=== PATIENT | female | born 1985 | race Caucasian/White ===

== ENCOUNTER 2023-04-05 09:47 | Outpatient (AMB) | payer OTHER, SELFPAY ==
--- NOTE | 2023-04-05 10:00 | A.OFFPC_ITS ---
Vital Signs 04/05/23 10:12 Height 5 ft 2 in Weight 107 lb BMI 19.6 BP 122/82 Blood Pressure Location Lt brachial Position Sitting Pulse 93 Pulse Source Pulse Oximeter Pulse Oximetry (%) 100 Oxygen Delivery Method Room Air Intake Visit Reasons: [employer]-Requesting Physical Exam Intake Note: Pt is here today as a New Patient to [facility] care/ PE: Last papsmear 02/08/22 [facility] Is last menstrual period known: Yes Last menstrual period: 03/17/23 Allergies No Known Allergies [No Known Allergies*] Allergy (Unverified 04/05/23 10:27) Medication List - Last Reconciled 04/05/23 by Chela Dodge MD multivitamin 1 tab PO DAILY Tobacco use date assessed: 04/05/23 Dental Screening Dental Screen Date: 04/05/23 Did you have a dental visit in the last 12 months?: Yes Did you have a dental problem in the last 6 months where you did not have access to dental care?: No Was dental information given to patient?: Patient has dentist HPI [employer]-Requesting Physical Exam HPI Details 38-year-old lady, new to practice, here to establish care with a new PCP and for her physical exam. She had her last cervical cancer screening done at [facility] 02/08/2022 which came back negative for any intraepithelial lesion or malignancy , negative HPV. She has been seeing Dr. Taty Alfaro, who did her bilateral salpingectomy and lysis of adhesions 08/02/2021. Patient states that she has been having episodes of low mood and acute anxiety attacks, has been having difficulty sleeping at night. States that she has had a rough childhood , living with father who has substance use disorder and from an overdose, and mother with depression. She also has had several user relationships in the past but now is in a stable relationship and is planning her wedding in the near future. [facility] Medical History (Updated 04/05/23 @ 11:02 by Chela Dodge MD) Mixed anxiety and depressive disorder History of pre-eclampsia History of Papanicolaou smear of cervix Surgical History (Updated 04/05/23 @ 10:38 by Chela Dodge MD) History of History of bilateral salpingectomy Family History (Updated 04/05/23 @ 10:43 by Chela Dodge MD) Mother Depression Father Substance use disorder Sister History of CVA (cerebrovascular accident) History of DVT (deep vein thrombosis) Social History Housing: Condominium Patient Tobacco Use Status: Former Tobacco user e-Cigarette/Vaping Use: Former Use service: No Current occupational status: employed Cognitive needs: No Hearing needs: No Vision needs: Yes Female Reproductive History Menstrual Age of Menarche: 13 Date of last menstrual period: 03/17/23 Date of last pap smear: 02/08/22 Other: Sees Dr. Taty Alfaro at [facility] Questionnaire PHQ-9 Over the last 2 weeks, how often have you been bothered by any of the following problems? 1. Little interest or pleasure in doing things: more than half the days 2. Feeling down, depressed, or hopeless: more than half the days 3. Trouble falling or staying asleep, or sleeping too much: nearly every day 4. Feeling tired or having little energy: nearly every day 5. Poor appetite or overeating: more than half the days 6. Feeling bad about yourself - or that you are a failure or have let yourself or your family down: more than half the days 7. Trouble concentrating on things, such as reading the newspaper or watching television: more than half the days 8. Moving or speaking so slowly that other people could have noticed. Or the opposite - being so fidgety or restless that you have been moving around a lot more than usual: not at all 9. Thoughts that you would be better off or of hurting yourself in some way: not at all Total score: 16 Depression Screening Interpretation: Positive Depression Screening Follow-up: New Medication prescribed and Community Mental Health Worker F/U Depression Screening Done: Yes 77661 - PHQ-9 Billing: Yes Source: Developed by Drs. Jcarlos Martell, Emeli Velasquez, Shiv Clancy and colleagues, with an educational sabrina from [employer]. Thrive Questionnaire Date Thrive assessed: 04/05/23 I am a: Patient What is your living situation today?: I have a steady place to live Within the past 12 months, did the food you bought not last and you didn't have the money to get more?: Never true Within the past 12 months, did you worry whether your food would run out before you got money to buy more?: Never true Do you have trouble paying for medicines?: No Do you have trouble getting transportation to medical appointments?: No Do you have trouble paying your heating and electricity bill?: No Do you have trouble taking care of your child, family member or friend?: No Do you have trouble with day-to-day activities such as bathing, preparing meals, shopping, managing finances, etc.?: No Are you currently unemployed and looking for a job?: No Are you interested in more education?: No THRIVE Score: 0 AUDIT C Alcohol Use Questionnaire (AUDIT-C) 1. How often do you have a drink containing alcohol?: Never Total Score: 0 CHANDRAKANT-7 AMB Questionnaire CHANDRAKANT-7 Date CHANDRAKANT - 7 assessed: 04/05/23 Feeling nervous, anxious, or on edge: 3 = Nearly every day Not being able to stop or control worryin = Nearly every day Worrying too much about different things: 3 = Nearly every day Trouble relaxin = Several days Being so restless that it is hard to sit still: 0 = Not at all Becoming easily annoyed or irritable: 0 = Not at all Feeling afraid as if something awful might happen: 3 = Nearly every day Total CHANDRAKANT-7 score (0-4 normal; 5-9 mild; 10-14 moderate; 15-21 severe): 13 Source: Developed by Drs. Jcarlos Martell, Emeli Velasquez, Shiv Clancy and colleagues, with an educational sabrina from [employer]. CHANDRAKANT-7 Assessment Billing CHANDRAKANT-7 Assessment Tool: CHANDRAKANT-7 Assessment 84139 Review of Systems Const Reports difficulty sleeping, Reports fatigue, Reports headache(s), Reports malaise, Reports poor appetite and Reports weight loss Eyes Reports no additional complaints ENT Reports headache(s) Card Denies chest pain, Reports rapid heart rate, Denies irregular heart rhythm, Denies lightheadedness and Denies dyspnea Resp Denies cough and Denies dyspnea GI Denies abdominal pain, Denies melena, Denies bloating, Denies hematochezia, Denies change in bowel habits, Denies dyspepsia and Denies heartburn Reports no additional complaints and Denies change in libido Musc Reports no additional complaints Skin/Breast Denies breast pain, Denies breast mass and Denies rash Neuro Reports headache(s) Psych Denies change in libido Endo Denies change in libido and Reports fatigue Demian/Lymph Reports no additional complaints Aller/Immun Reports no additional complaints Physical exam (Primary Care) Vital Signs: Last Vital Signs Pulse 93 04/05/23 10:12 BP 122/82 04/05/23 10:12 Pulse Ox 100 04/05/23 10:12 Oxygen Delivery Method Room Air 04/05/23 10:12 BMI result Body Mass Index 19.6 Tobacco/Smoking Status: Tobacco use Status Tobacco use date assessed 04/05/23 04/05/23 10:15 Patient Tobacco Use Status Former Tobacco user 04/05/23 10:15 e-Cigarette/Vaping Use Former Use 04/05/23 10:15 PHQ-9: PHQ-9 Score PHQ-9: Total score 16 04/05/23 14:14 Depression Screening Interpretation: Positive Depression Screening Follow-up: New Medication prescribed and Community Mental Health Worker F/U Thrive Assessment: Date of Thrive Assessment Date Thrive assessed 04/05/23 04/05/23 10:23 Const General: no acute distress and alert Nutritional Appearance: average body habitus Orientation/consciousness: patient oriented x3 HENMT Head: Yes normocephalic and Yes atraumatic Ears: external ears normal, TM's normal bilaterally and EAC's normal General nose exam: Normal external nose present and No nasal discharge present Face and sinus: Yes face symmetric Mouth: Normal oral and palatal mucosa present, lip normal, tongue normal, oropharynx normal and moist mucous membranes Eyes General: appearance normal, both eyes and all related structures Eyelids: Yes eyelids normal Conjunctivae: conjunctivae normal Sclerae: sclerae normal Pupils: Equal, round and reactive pupils present EOM: EOMs intact bilaterally Neck Neck: Yes full ROM, Yes no lymphadenopathy and Yes supple Thyroid: Thyroid normal (Nonpalpable) Chest Chest palpation & inspection: normal inspection of the chest Breast/axilla inspection: normal inspection of the breasts Breast/axilla palpation: normal palpation of the breasts Resp Effort & Inspection: normal respiratory effort and able to speak in complete sentences Auscultation: clear to auscultation bilaterally Cardio Rate: regular rate Rhythm: regular rhythm Heart sounds: S1 normal heart sound present and S2 normal heart sound present GI Other: Healed surgical scar on lower abdomen Palpation (GI): Soft to palpation, nontender, no guarding and no masses Auscultation: normal bowel sounds General: Yes no CVA tenderness Back/Spine/Pelvis Back: no CVA tenderness and No back tenderness Skin General skin exam: no rashes or lesions noted Neuro General: patient oriented x3, gait normal, moves all extremities, Normal light touch and pain sensation, no focal motor deficits and CN's II-XI intact bilaterally Cranial nerves: Yes Equal, round and reactive pupils present Cognition (Neuro): normal cognition Gait exam (Neuro): Normal gait present Motor exam (neuro): 5/5 motor strength present throughout Extrem General: Yes normal to inspection, Yes full ROM, Yes no joint enlargement, Yes no pedal edema and Yes normal gait Psych Appearance: grossly normal and well kempt Mental Status: mental status grossly normal Speech and movement: Normal speech and movement present Affect: normal affect Attitude: cooperative Thought process: Normal thought process present Thought content: Normal thought content present Assessment and Plan Assessment & Plan (1) Mixed anxiety and depressive disorder: Code(s): F41.8 - Other specified anxiety disorders Plan: Will start on buspirone 5 mg per tablet to take 1 tablet twice a day, and may take an extra dose during the middle of the day as needed for acute anxiety attacks. Referred to [facility] for assistance in getting in for counseling. (2) Annual visit for general adult medical examination with abnormal findings: Code(s): Z00.01 - Encounter for general adult medical examination with abnormal findings Plan: Will check appropriate labs. Recommended dental visit every 6 months and regular eye exams, at least every 2 years. Take adequate calcium in diet and vitamin-D 3 at 2000 IU per cap once a day, in addition to weight-bearing exercises to help maintain good muscle tone and weight control. Instructed to do self-breast exam, and recommended to get yearly mammogram, starting at age 40. Patient states that she must have had her Tdap when she was with her 1st child, but does not want to get the COVID booster nor does she want to get a flu shot (3) Palpitation: Code(s): R00.2 - Palpitations Plan: Ordered a CBC and TSH with reflex T4 (4) Poor appetite: Code(s): R63.0 - Anorexia Plan: Likely due to her anxiety depression, Orders: Orders Lipid Panel Today F41.8 - Other specified anxiety disorders, R00.2 - Palpitations, R63.0 - Anorexia, Z00.01 - Encounter for general adult medical examination with abnormal findings TSH reflex Free T4 Today F41.8 - Other specified anxiety disorders, R00.2 - Palpitations, R63.0 - Anorexia, Z00.01 - Encounter for general adult medical examination with abnormal findings Vitamin D 25-OH Total Today F41.8 - Other specified anxiety disorders, R00.2 - Palpitations, R63.0 - Anorexia, Z00.01 - Encounter for general adult medical examination with abnormal findings Vitamin B12 and Folate Today F41.8 - Other specified anxiety disorders, R00.2 - Palpitations, R63.0 - Anorexia, Z00.01 - Encounter for general adult medical examination with abnormal findings Complete Blood Count Auto Diff Today F41.8 - Other specified anxiety disorders, R00.2 - Palpitations, R63.0 - Anorexia, Z00.01 - Encounter for general adult medical examination with abnormal findings Comprehensive [place]. Panel Fast Today F41.8 - Other specified anxiety disorders, R00.2 - Palpitations, R63.0 - Anorexia, Z00.01 - Encounter for general adult medical examination with abnormal findings Medications: New buspirone 5 mg PO TID 90 tabs 0RF F41.8 - Other specified anxiety disorders Coding Level of Care Code New Pt Prev Care [id number]([id number] Diagnoses Mixed anxiety and depressive disorder F41.8 Annual visit for general adult medical examination with abnormal findings Z00.01 Palpitation R00.2 Poor appetite R63.0 Additional Codes CHANDRAKANT-7 Assessment Billing - CHANDRAKANT-7 Assessment Tool: CHANDRAKANT-7 Assessment 42118 ([id number])
[2023-04-05 10:12] VITALS: BP 122/82; PULSE 93; O2SAT 100; BMI 19.6
== END 2023-04-05 11:00 | disposition home or self-care (01) ==
PROVIDERS: Visit Provider Internal Medicine
DX: Z00.01 Encounter for general adult medical examination with abnormal findings (principal); F41.8 Other specified anxiety disorders; R00.2 Palpitations; R63.0 Anorexia
CPT/HCPCS: 96127; 99213; 99385

== ENCOUNTER 2023-04-09 09:49 | Outpatient (REF) | payer OTHER, SELFPAY ==
[2023-04-09 13:21] LABS: MANUAL DIFF FLAG NO
[2023-04-09 13:35] LABS: Basophils Percent Auto 0.6 % (0-2); Eosinophils Percent Auto 0.6 % (0-4); Hematocrit 35.3 % (37.0-47.0); Hemoglobin 11.6 g/dl (12.0-16.0); Imm Gran Abs Auto 0.02 X10*3/uL (0.00-0.03); Imm Gran Pct Auto 0.3 % (0.0-0.4); Lymphocytes Absolute Auto 1.7 X10*3/uL (1.2-4.9); Lymphocytes Percent Auto 24.7 % (20-40); Mean Corpuscular HGB Conc 32.9 g/dl (31.0-35.0); Mean Corpuscular Hemoglobin 29.1 pg (27.0-33.0); Mean Corpuscular Volume 88.7 fL (80.0-98.0); Mean Platelet Volume 12.9 fL (9.4-12.3); Monocytes Absolute Auto 0.3 X10*3/uL (0.1-1.2); Monocytes Percent Auto 4.6 % (2-11); Neutrophils Absolute Auto 4.8 x10*3/uL (2.0-8.3); Neutrophils Percent Auto 69.2 % (45-73); Platelet Count 180 X10*3/uL (160-400); Red Blood Count 3.98 X10*6/uL (4.20-5.50); Red Cell Distribution Width 12.6 % (11.0-16.0); White Blood Count 6.9 X10*3/uL (4.8-10.8)
[2023-04-09 14:08] LABS: Alanine Aminotransferase 11 U/L (0-31); Albumin Level 4.4 g/dL (3.5-5.0); Alkaline Phosphatase 43 U/L (39-117); Anion Gap 12 (12-20); Aspartate Amino Transferase 17 U/L (5-31); Bilirubin Total 0.4 mg/dL (0.0-1.0); Blood Urea Nitrogen 9 mg/dL (9-16); Carbon Dioxide 26 mmol/L (22-29); Chloride 106 mmol/L (96-108); Cholesterol 160 mg/dL (<200); Estimated Glomerular Filt Rate > 60; Glucose Fasting 91 mg/dL (60-99); HDL Cholesterol 64 mg/dL (>40); LDL Cholesterol Calculated 88 mg/dL (<100); Potassium 3.9 mmol/L (3.3-5.1); Sodium 140 mmol/L (135-145); Total Protein 7.7 g/dL (6.5-8.0); Triglycerides 41 mg/dL (<150)
[2023-04-09 14:12] LABS: TSH reflex Free T4 0.64 uIU/mL (0.32-4.0); Vitamin D 25-OH Total 61.3 ng/mL (>30)
[2023-04-09 14:17] LABS: Folate 13.5 ng/mL (> or = 4.0); Vitamin B12 806 pg/mL (200-900)
== END 2023-04-09 09:50 | disposition home or self-care (01) ==
LOC: HO.HMGCLDS 09:49
PROVIDERS: PCP Internal Medicine; Visit Provider Internal Medicine
DX: Z00.01 Encounter for general adult medical examination with abnormal findings (principal); R00.2 Palpitations; R63.0 Anorexia; F41.8 Other specified anxiety disorders
CPT/HCPCS: 36415; 80053; 80061; 82306; 82607; 82746; 84443; 85025